=== PATIENT | male | born 1990 | race Caucasian/White ===

== ENCOUNTER 2021-01-05 19:40 | Emergency (ER) | payer OTHER, MEDICAID ==
[~2021-01-05] VITALS: Ht 175.3 cm; Wt 70.3 kg
[~2021-01-05 19:40] MED LIST: AMBEREN; AMLODIPINE; BUSPAR30 MG; CALCIUM 500 +1 EAC5; CARISOPRODOL; CARISOPRODOL 3350 MG PO; FISHOIL; FLEXERIL PO; IBUPROFEN 800800 M1 PO; IBUPROFEN 800800 MG PO; LAMICTAL XR100 MG; MOBIC15 MG PO; NOHOMEMEDICATIONS; NORCO 5-325 TA1 EACH PO; PERCOCET 10-321 EACH; PERIDEX 0.12%473 M1 SSP; PREDNISONE 20 M20 M1 PO; TRAZODONE 150150 M1; ULTRAM 50MG TAB50 MG PO; VALIUM5 MG; ZOLOFT 50 MG TA50 M1
[2021-01-05] MEDS ORDERED: TOPROL XL25 MG PO (20:01)
[2021-01-05] MEDS ORDERED: SEROQUEL 25 MG25 MG PO (20:02)
[2021-01-05] MEDS ORDERED: EFFEXOR XR150 MG PO (20:03)
[2021-01-05 20:29] LABS: ABSOLUTE BASOPHILS 0.1 thou/uL (0.0-0.2); ABSOLUTE EOSINOPHILS 0.1 thou/uL (0.0-0.7); ABSOLUTE LYMPHOCYTES 2.8 thou/uL (0.8-5.3); ABSOLUTE MONOCYTES 0.7 thou/uL (0.0-1.2); ABSOLUTE NEUTROPHILS 7.8 thou/uL (1.6-8.1); BASOPHILS 0.7 %; EOSINOPHILS 0.9 %; HEMATOCRIT 47.2 % (42.0-52.0); HEMOGLOBIN 16.4 gm/dL (14.0-18.0); LYMPHOCYTES 24.5 %; MCH 30.4 pg (26.0-34.0); MCHC 34.7 g/dL (28.0-37.0); MCV 87.8 fL (80.0-100.0); MPV 8.2 fl. (7.2-11.1); NUCLEATED RBCS 0 /100WBC; PLATELET COUNT* 259 thou/uL (150-400); POLYS 67.9 %; RBC 5.38 mil/uL (4.50-6.00); RDW-CV 13.2 % (10.5-14.5); WBC 11.5 thou/uL (4.0-11.0)
[2021-01-05 20:38] LABS: CALCIUM 9.6 mg/dL (8.5-10.1); CREATININE 1.1 mg/dL (0.6-1.3); POTASSIUM 4.2 mmol/L (3.5-5.1)
[2021-01-05 20:42] LABS: TOTAL BILIRUBIN 0.3 mg/dL (<0.1-1.0)
[2021-01-05 20:45] LABS: URINE BILIRUBIN NEGATIVE (Negative); URINE BLOOD NEGATIVE (Negative); URINE CLARITY CLEAR; URINE COLOR YELLOW; URINE GLUCOSE-RANDOM NEGATIVE (Negative); URINE KETONES NEGATIVE (Negative); URINE LEUKOCYTES-REFLEX NEGATIVE (Negative); URINE NITRITE-REFLEX NEGATIVE (Negative); URINE PROTEIN NEGATIVE (Negative); URINE SPECIFIC GRAVITY 1.015 (1.005-1.030); URINE UROBILINOGEN 0.2 E.U./dl (0.2-1.0)
[2021-01-05 20:50] LABS: AMP/METHAMP Negative (Negative); BARBITURATES Negative (Negative); BENZODIAZEPINES Negative (Negative); COCAINE Negative (Negative); METHADONE Negative (Negative); OPIATES Negative (Negative); PCP Negative (Negative); THC POSITIVE (Negative)
[2021-01-05 20:55] LABS: ACETAMINOPHEN < 2 ug/mL (10-30); ALCOHOL < 10 mg/dL (<10); SALICYLATE 5.2 mg/dL (2.8-20.0)
[2021-01-05 23:07] VITALS: BP 133/68
== END 2021-01-05 23:07 | disposition home or self-care (01) ==
LOC: M.ERS 19:40
PROVIDERS: Emergency Medicine
DX: F32.9 Major depressive disorder, single episode, unspecified (principal); J45.909 Unspecified asthma, uncomplicated